=== PATIENT | female | born 1950 | race Caucasian/White ===

== ENCOUNTER → 2020-02-05 15:54 | Outpatient (BNVA) | payer MEDICARE, SELFPAY | PROVIDERS: Visit Provider Nurse Practitioner | DX: Z20.828 Contact with and (suspected) exposure to other viral communicable diseases (principal) | CPT/HCPCS: 87635 ==

== ENCOUNTER 2020-02-09 11:16 | Emergency (ER) | payer MEDICARE, SELFPAY ==
[2020-02-09 11:33] VITALS: BP 175/66; PULSE 73; RESP 18; TEMP 36.4; O2SAT 97; BMI 27.7
--- NOTE | 2020-02-09 11:39 | ECG_ITS ---
[facility] Test Date: 2020-02-09 Pat Name: Kirstie Ma Department: Room: Gender: Female Diamond Finishing Supervisor: : 1950 Requested By: Mya Hull Order Number: [id number] Chente MD: Donavan Tanner M.D. Measurements Intervals [place] Rate: 70 P: 19 VA: 203 QRS: -2 QRSD: 89 T: 51 QT: 402 QTc: 436 Interpretive Statements SINUS RHYTHM No previous ECG available for comparison Electronically Signed On 02-09-2020 21:13:50 CONTRACTS MANAGER by Donavan Tanner M.D. [id number]
--- NOTE | 2020-02-09 11:39 | XRR_ITS ---
PROCEDURE INFORMATION: Exam: XR Chest, 1 View Exam date and time: 02/09/2020 12:22 PM Age: 69 years old Clinical indication: Chest pain; Type not specified; Patient HX: PT states pain off/on x25 days, PT denies HX of CA, PT denies smoking HX; Additional info: Chest pain, SOB TECHNIQUE: Imaging protocol: XR of the chest Views: 1 view. COMPARISON: No relevant prior studies available. FINDINGS: Lungs: COPD, interstitial prominence, and chronic granulomatous disease. Pleural space: No pleural effusion. Heart/Mediastinum: No cardiomegaly. Bones/joints: Mild degenerative change. XR/XR chest 1V portable [id number] IMPRESSION: COPD, interstitial prominence, and chronic granulomatous disease.
[2020-02-09 11:41] VITALS: BP 175/66; PULSE 74; RESP 18; O2SAT 98
--- NOTE | 2020-02-09 12:20 | ED_ITS ---
HPI - Chest Pain General: Chief Complaint: Chest Pain Stated Complaint: JORDY LEIVA Time Seen by Provider: 02/09/20 11:47 History of Present Illness: HPI narrative: This patient is a 69-year-old female who comes in today with chest pain and shortness of breath. She was diagnosed with Covid 25 days ago. She and her were both tested at that time and were positive. Her was quite ill and is currently hospitalized at [facility] in [place]. Mrs. Ma said she was sick if she is ever been for about 5 days. She had shortness of breath, chest pain, cough, fevers, body aches, diarrhea. After that she started improving and had basically gotten back to feeling like her normal self although somewhat tired still. In the past 3 or 4 days she has again started feeling bad with weakness, severe fatigue, chest pain, shortness of breath. She does have a history of asthma and she said for many years was stable using [place] once a day. She is increased it back up to twice a day because of her shortness of breath. Her shortness of breath is worse with exertion. She has a history of hypertension but overall is relatively healthy. She does not have a physician in this area. She and her spend [place] in [place] and that is where her primary care doctor is. She is not having vomiting or diarrhea now. She has not had a fever although she had a low-grade temp less than 100 about 4 5 days ago. She has no cardiac history other than frequent PVCs. MD complaint: chest pain and chest heaviness Onset (ago): day(s) (3 or 4) Timing of current episode: constant Prior episodes: No Pain location: substernal Pain radiation: none Severity: moderate Quality: heaviness Relieving factors: nothing Exacerbating factors: exertion Context: recent illness Associated symptoms: Reports dyspnea and other (Severe fatigue); Deny abdominal pain, fever(s), nausea or vomiting Review of Systems General: Reports: 10 or more systems reviewed and unremarkable except in HPI and below Const: Reports: fatigue and malaise; Denies: fever(s) or chills Eyes: Denies: change in vision ENMT: Denies: odynophagia Card: Reports: chest pain; Denies: swelling of feet/ankles Resp: Reports: dyspnea GI: Denies: abdominal pain, nausea or vomiting : Denies: flank pain or difficulty voiding Musc: Denies: neck pain or back pain Skin/Breast: Denies: rash Neuro: Denies: headache(s), numbness in extremities or weakness in extremities Rylan/Lymph: Denies: easy bruising or easy bleeding PFS ED PFSH: Medical History (Updated 02/09/20 @ 14:12 by Mya Thompson MD) Hypertension PVCs (premature ventricular contractions) Physical Exam Const: COMMON NORMALS: no acute distress, patient oriented x3, no limitations and alert GENERAL APPEARANCE: cooperative and comfortable HENMT: HEAD & SCALP: normal to inspection FACE & SINUS: normal facial exam Eye: GENERAL EYE: appearance normal, both eyes and all related structures Neck/C-Spine: COMMON NORMALS: supple, no meningeal signs and no JVD Chest: COMMONS NORMALS: normal inspection of the chest Resp: COMMON NORMALS: normal respiratory effort, No use of accessory muscles and clear to auscultation bilaterally AUSCULTATION: clear to auscultation bilaterally Cardio: COMMON NORMALS: no JVD, regular rate, regular rhythm and No murmurs present (Cardio) RATE: regular rate RHYTHM: regular rhythm GI: COMMON NORMALS: Normal to inspection, nondistended, normoactive bowel sounds present, Soft to palpation and non-tender INSPECTION: Yes normal to inspection AUSCULTATION: Yes normoactive bowel sounds PALPATION: Yes Soft to palpation Back/Pelvis: COMMON NORMALS: thoracic and lumbar spine normal to inspection Extremity: COMMON NORMALS: normal to inspection Neuro: COMMON NORMALS: patient oriented x3, moves all extremities, no focal motor deficits and no sensory deficits noted SENSORIUM/ORIENTATION: Yes alert MENINGEAL SIGNS: Yes no meningeal signs Psych: COMMON NORMALS: mental status grossly normal, cooperative and normal affect Skin: COMMON NORMALS: no rashes or lesions noted and turgor normal GENERAL SKIN EXAM: no rashes or lesions noted and turgor normal Course ED course: Work-up for this nice patient was quite unremarkable. No evidence of pneumonia, PE, cardiac dysfunction including myocarditis. 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 Consuelo put her on a short course of prednisone as she said that is helped in the past with her asthma. No really hear any wheezing today but I am hoping that will help anyway. She has her other asthma medications at home. She does not have a primary care doctor in this area currently. She did have 1 who retired and is appreciative of any assistance that we can given finding a new one. Vital Signs: Vital signs: Vital Signs Temperature 98.4 F 02/09/20 15:51 Pulse Rate 63 02/09/20 15:51 Respiratory Rate 18 02/09/20 15:51 Blood Pressure 146/68 02/09/20 15:51 Pulse Oximetry 100 02/09/20 15:51 MDM - Chest Pain Lab Data: Labs: Lab Results 02/09/20 02/09/20 02/09/20 Range/Units 12:01 12:01 12:01 WBC 4.5 (4.0-10.0) 10^3/ uL RBC 4.64 (4.1-5.3) 10^6/u L Hgb 13.4 (11.5-15.3) g/dL Hct 41.6 (37.0-47.0) % MCV 89.7 (81-99) fL MCH 28.9 (28.0-34.0) pg MCHC 32.2 (30.0-36.0) g/dL RDW 13.4 (12.1-15.1) % Plt Count 235 (130-400) 10^3/c mm MPV 10.0 (7.4-10.4) fL Neut % (Auto) 58.2 % Lymph % (Auto) 29.8 % [place] % (Auto) 5.6 % Eos % (Auto) 5.1 % Baso % (Auto) 0.9 % Neut # (Auto) 2.60 (1.8-7.7) 10^3/u L Lymph # (Auto) 1.3 (0.8-4.8) 10^3/u L Independence # (Auto) 0.3 (0.2-0.9) 10^3/u L Eos # (Auto) 0.2 (0.0-0.8) 10^3/u L Baso # (Auto) 0.0 (0.0-0.1) 10^3/u L Nucleated RBC % (a uto) 0 % Nucleated RBCs # 0.0 /100WBC PT 12.30 (12.1-14.9) SECO NDS INR 0.89 (0.8-1.2) D-Dimer 0.36 (0-0.59) ug/mIFE U Sodium 138 (136-145) mmol/L Potassium 4.1 (3.5-5.1) mmol/L Chloride 106 (98-107) mmol/L Carbon Dioxide 22 (22-29) mmol/L Anion Gap 14.1 (5-19) BUN 14 (8-23) mg/dL Creatinine 0.8 (0.5-0.9) mg/dL GFR Calculation Not Reportable Glucose 108 (65-115) mg/dL Calculated Osmolal ity 287 (285-295) mOsm/k g Lactic Acid (0.5-2.2) mmol/L Calcium 8.5 (8.5-10.5) mg/dL Total Bilirubin 0.2 (0.15-1.2) mg/dL AST 21 (0-32) U/L ALT 26 (0-33) U/L Alkaline Phosphata se 72 (35-105) IU/L Troponin T Baselin e (0-10) ng/L Troponin T 120 Min [place] (0-10) ng/L Delta Troponin T (0-10) ABS# NT-Pro-B Natriuret Pep 144 H (0-125) pg/mL Total Protein 6.4 L (6.6-8.7) g/dL Albumin 4.1 (3.5-5.2) g/dL Globulin 2.3 (1.3-4.6) g/dL Lipase 27 (13-60) U/L 02/09/20 02/09/20 02/09/20 Range/Units 12:01 12:01 14:14 WBC (4.0-10.0) 10^3/ uL RBC (4.1-5.3) 10^6/u L Hgb (11.5-15.3) g/dL Hct (37.0-47.0) % MCV (81-99) fL MCH (28.0-34.0) pg MCHC (30.0-36.0) g/dL RDW (12.1-15.1) % Plt Count (130-400) 10^3/c mm MPV (7.4-10.4) fL Neut % (Auto) % Lymph % (Auto) % [place] % (Auto) % Eos % (Auto) % Baso % (Auto) % Neut # (Auto) (1.8-7.7) 10^3/u L Lymph # (Auto) (0.8-4.8) 10^3/u L Independence # (Auto) (0.2-0.9) 10^3/u L Eos # (Auto) (0.0-0.8) 10^3/u L Baso # (Auto) (0.0-0.1) 10^3/u L Nucleated RBC % (a uto) % Nucleated RBCs # /100WBC PT (12.1-14.9) SECO NDS INR (0.8-1.2) D-Dimer (0-0.59) ug/mIFE U Sodium (136-145) mmol/L Potassium (3.5-5.1) mmol/L Chloride (98-107) mmol/L Carbon Dioxide (22-29) mmol/L Anion Gap (5-19) BUN (8-23) mg/dL Creatinine (0.5-0.9) mg/dL GFR Calculation Glucose (65-115) mg/dL Calculated Osmolal ity (285-295) mOsm/k g Lactic Acid 1.3 (0.5-2.2) mmol/L Calcium (8.5-10.5) mg/dL Total Bilirubin (0.15-1.2) mg/dL AST (0-32) U/L ALT (0-33) U/L Alkaline Phosphata se (35-105) IU/L Troponin T Baselin e 6 (0-10) ng/L Troponin T 120 Min [place] 6.00 (0-10) ng/L Delta Troponin T 0 (0-10) ABS# NT-Pro-B Natriuret Pep (0-125) pg/mL Total Protein (6.6-8.7) g/dL Albumin (3.5-5.2) g/dL Globulin (1.3-4.6) g/dL Lipase (13-60) U/L Discharge Plan Discharge Patient Disposition: Home Clinical Impression: Shortness of breath, History of 2019 novel coronavirus disease (COVID-19) Chest pain Qualifiers: Chest pain type: unspecified Qualified Code(s): R07.9 - Chest pain, unspecified Condition: Stable Prescriptions: New prednisone 10 mg tablet 10 mg PO BID Qty: 10 RF: 0 No Action trazodone 50 mg tablet 50 mg PO BID RF: 0 metoprolol succinate 200 mg tablet extended release 24 hr 100 mg PO BID RF: 0 Calcium + D 600 mg(1,500mg) -200 unit Tablet 1 tab PO DAILY RF: 0 meloxicam 7.5 mg tablet 7.5 mg PO DAILY RF: 0 meclizine 25 mg tablet 25 mg PO DAILY RF: 0 pantoprazole 40 mg tablet,delayed release (DR/EC) 40 mg PO DAILY RF: 0 nitroglycerin 2 % Ointment See Rx Instructions .ROUTE .COMPLEX RF: 0 montelukast 10 mg tablet 10 mg PO DAILY RF: 0 aspirin 81 mg Tablet 81 mg PO DAILY RF: 0 Advair Diskus 100-50 mcg/dose blister with device See Rx Instructions .ROUTE .COMPLEX RF: 0 lovastatin 20 mg tablet 10 mg PO BID RF: 0 nifedipine 60 mg tablet extended release 60 mg PO DAILY RF: 0 fluticasone propionate 50 mcg/actuation spray,suspension See Rx Instructions .ROUTE .COMPLEX RF: 0 Claritin 10 mg Tablet 10 mg PO DAILY RF: 0 Ocuvite Tablet 1 tab PO DAILY RF: 0 ProAir RespiClick 90 mcg/actuation aerosol powdr breath activated See Rx Instructions .ROUTE .COMPLEX RF: 0 Vitamin D3 1 tab PO DAILY RF: 0 Discharge Orders: Discharge Order (Routine); Ordered 02/09/20 Ordered By: Mya Thompson Discharge Diet: Usual diet Discharge Activity: Limit activity as instructed Patient Instructions: Asthma (ED) Activity Restrictions/Additional Instructions: Continue your inhalers as needed and as prescribed. Take the prednisone as prescribed for a few days. Hopefully that will help control your shortness of breath. Take it with food so it does not upset your stomach. Return to the ER if new or worse symptoms occur. Our family independence case manager should contact you tomorrow to assist with finding a new primary care provider. Coding Level of Care Code ED System Administration Advisor for Rajesh Fwd Exam Comprehensive
[2020-02-09 12:29] LABS: Basophils % 0.9 %; Eosinophils # 0.2 10^3/uL (0.0-0.8); Eosinophils % 5.1 %; Hematocrit 41.6 % (37.0-47.0); Hemoglobin 13.4 g/dL (11.5-15.3); Lymphocytes # 1.3 10^3/uL (0.8-4.8); Lymphocytes % 29.8 %; Mean Corpuscular HGB Conc 32.2 g/dL (30.0-36.0); Mean Corpuscular Hemoglobin 28.9 pg (28.0-34.0); Mean Corpuscular Volume 89.7 fL (81-99); Monocytes # 0.3 10^3/uL (0.2-0.9); Monocytes % 5.6 %; Neutrophils % 58.2 %; Nucleated Red Blood Cells % 0 %; Platelet Count 235 10^3/cmm (130-400); Red Blood Count 4.64 10^6/uL (4.1-5.3); Red Cell Distribution Width 13.4 % (12.1-15.1); White Blood Count 4.5 10^3/uL (4.0-10.0)
[2020-02-09 12:30] LABS: INR 0.89 (0.8-1.2)
[2020-02-09 12:33] LABS: D Dimer 0.36 ug/mIFEU (0-0.59)
[2020-02-09 12:40] LABS: Troponin(5th) Baseline 6 ng/L (0-10)
[2020-02-09 12:49] LABS: Alanine Aminotransferase 26 U/L (0-33); Albumin Level 4.1 g/dL (3.5-5.2); Alkaline Phosphatase 72 IU/L (35-105); Aspartate Amino Transferase 21 U/L (0-32); Blood Urea Nitrogen 14 mg/dL (8-23); Calcium 8.5 mg/dL (8.5-10.5); Carbon Dioxide 22 mmol/L (22-29); Chloride 106 mmol/L (98-107); Globulin 2.3 g/dL (1.3-4.6); Glucose 108 mg/dL (65-115); Lipase 27 U/L (13-60); NT Pro B Type Natriuretic Pept 144 pg/mL (0-125); Osmolality Calculated 287 mOsm/kg (285-295); Sodium 138 mmol/L (136-145); Total Bilirubin 0.2 mg/dL (0.15-1.2); Total Protein 6.4 g/dL (6.6-8.7)
[2020-02-09 13:13] LABS: Lactic Sepsis W/Reflex 1.3 mmol/L (0.5-2.2)
[2020-02-09 13:30] LABS: Anion Gap 14.1 (5-19); Potassium 4.1 mmol/L (3.5-5.1)
[2020-02-09 13:33] VITALS: BP 149/62; RESP 15; O2SAT 66
--- NOTE | 2020-02-09 13:39 | ECG_ITS ---
[facility] Test Date: 2020-02-09 Pat Name: Kirstie Ma Department: Room: Gender: Female Contracting Analyst: : 1950 Requested By: Mya Hull Order Number: [id number] Chente MD: Donavan Tanner M.D. Measurements Intervals [place] Rate: 64 P: 16 CA: 225 QRS: -15 QRSD: 90 T: 39 QT: 418 QTc: 434 Interpretive Statements SINUS RHYTHM WITH FIRST DEGREE AV BLOCK Compared to ECG 02/09/2020 11:47:08 First degree AV block now present Electronically Signed On 02-09-2020 21:24:21 FULL STACK WEB DEVELOPER by Donavan Tanner M.D. [email or web address] Enginesmercy health tiffin [email or web address] [id number]
[2020-02-09 15:07] LABS: Troponin 5 2HR Delta 0 ABS# (0-10)
[2020-02-09 15:51] VITALS: BP 146/68; PULSE 63; RESP 18; TEMP 36.9; O2SAT 100
--- NOTE | 2020-02-10 15:48 | DCPLANNER ---
grievance manager had message to speak with patient about getting established with a primary care physician. grievance manager spoke with patient, she stated that she would like a primary care physician in [place]. Matt teran gave patient a couple of options at [facility]. Patient stated that she would like to see Dr. Redmond. grievance manager called [facility], [facility], spoke with Shena, a follow up appointment is scheduled for Monday, February 24, 2020 at 10:[address] Redmond. grievance manager called patient and gave patient the appointment information. Patient stated that she would attend the appointment.
--- NOTE | 2020-02-26 15:01 | DCPLANNER ---
Patient cancelled appointment scheduled for 02.24.20 at [facility].
== END 2020-02-09 15:54 | disposition home or self-care (01) ==
PROVIDERS: Emergency Provider Emergency Medicine
DX: R07.9 Chest pain, unspecified (principal); R06.02 Shortness of breath; Z86.19 Personal history of other infectious and parasitic diseases; Z79.82 Long term (current) use of aspirin; I10 Essential (primary) hypertension
CPT/HCPCS: 12345; 71045; 80053; 83605; 83690; 83880; 84484; 85025; 85378; 85610; 93005; 99282; 99284